=== PATIENT | female | born 1985 | race Caucasian/White ===

== ENCOUNTER 2016-05-13 07:25 | Inpatient (IN) | payer OTHER ==
[2016-05-13] VITALS (37 sets, daily range): BP systolic 98–120; BP diastolic 56–89; PULSE 61–92; RESP 16–18; TEMP 97.8–98.1
[~2016-05-13 07:25] MED LIST: HYDR-3580; PRENTAB72 PO
[2016-05-13] MEDS ORDERED: OXYTOCIN 30 UNITS-500ML PREMIX 500 ML IV SCH (08:30)
[2016-05-13] MEDS ORDERED: LIDOCAINE HCL 1% 50 ML VIAL INFIL PRN (08:30)
[2016-05-13] MEDS ORDERED: MINERAL OIL 10 ML VIAL TOPICAL PRN (08:30)
[2016-05-13] MEDS ORDERED: LACTATED RINGER'S 1000 ML INJ 1,000 ML IV PRN (08:30)
[2016-05-13] MEDS ORDERED: CITRIC ACID-SODIUM CITRATE LIQ 30 ML UDC PO SCH (08:30)
[2016-05-13] MEDS ORDERED: LIDOCAINE HCL 1% 50 ML VIAL I-DERMAL PRN (08:30)
[2016-05-13] MEDS ORDERED: OXYTOCIN 30 UNITS-500ML PREMIX 500 ML IV ONE (08:30)
[2016-05-13] MEDS ORDERED: SODIUM CHLORID 0.9% 500 ML INJ 500 ML IV PRN (08:30)
--- NOTE | 2016-05-13 08:34 | PD.LABORPN ---
Subjective Subjective at 39+ weeks admitted for induction with favorable Pittman Score comfortable with occassional UCs and lots of pressres no leaking or bleeding GFM Objective Objective 3/80/-1 and deviated to the left side AROM clear pelvis clinically adequate and proven strip category 1 Assessment/Plan Assessment and Plan anticipate pitocin and epidural as needed Larissa Tellez MD May 13, 2016 08:34
[2016-05-13] MEDS ORDERED: SODIUM CHLOR 0.9% 1000 ML INJ 1,000 ML IV PRN (08:50)
[2016-05-13 08:57] LABS: AUTOMATED NEUTROPHIL # 6.8 TH/MM3 (1.8-7.7); BASOPHIL % 0.4 % (0.0-2.0); EOSINOPHIL # 0.1 TH/MM3 (0-0.4); HEMATOCRIT 33.2 % (35.0-46.0); HEMO FLAGS DIFF FINAL; LYMPH % 16.5 % (9.0-44.0); LYMPHOCYTE # 1.5 TH/MM3 (1.0-4.8); MEAN CELL VOLUME 79.6 FL (80.0-100.0); MEAN CORPUSCULAR HEMOGLOBIN 27.4 PG (27.0-34.0); MEAN CORPUSCULAR HGB CONC 34.4 % (32.0-36.0); MONO % 6.9 % (0.0-8.0); NEUT % 75.2 % (16.0-70.0); PLATELET COUNT 351 TH/MM3 (150-450); RED BLOOD COUNT 4.18 MIL/MM3 (4.00-5.30); RED CELL DISTRIBUTION WIDTH 14.2 % (11.6-17.2)
[2016-05-13 09:10] LABS: BACTERIA, URINE MOD /hpf; BLOOD, URINE NEG (NEG); GLUCOSE,URINE NEG (NEG); KETONE, URINE NEG (NEG); MUCUS URINE FEW /lpf (OCC); NITRITE,URINE NEG (NEG); SQUAMOUS EPITHELIAL CELL URINE 4 /hpf (0-5); URINE COLOR YELLOW (YELLW/STRAW)
[2016-05-13] MEDS: LACTATED RINGER'S 1000 ML INJ 1,000 ML IV SCH ×2 (09:10→12:09)
[2016-05-13 09:12] LABS: COMMENT (UR) CULTURE INDICATED; CULTURE IF INDICATED CULTURE INDICATED
[2016-05-13] MEDS ORDERED: ePHEDrine/NS 25 MG/5 ML SYR ONE (11:23)
[2016-05-13] MEDS ORDERED: fentaNYL 2MCG-BUPIV 0.125% INJ 100 ML ONE (11:23)
[2016-05-13] MEDS ORDERED: MEASLES, MUMPS, RUBELLA VACCINE 0.5 ML VIAL SQ ONE (16:00)
[2016-05-13] MEDS ORDERED: DIPHTH/TETANUS/ACEL PERTUSSIS (BOOSTER) 0.5 ML VIAL/PFS IM ONE (16:00)
[2016-05-13] MEDS ORDERED: DOCUSATE SODIUM 50 MG/SENNA 8.6 MG TAB PO PRN (16:30)
[2016-05-13] MEDS ORDERED: BENZOCAINE 20% TOPICAL SPRAY 60 ML CAN TOPICAL PRN (16:30)
[2016-05-13] MEDS ORDERED: ONDANSETRON ODT 4 MG TAB PO PRN (16:30)
[2016-05-13] MEDS ORDERED: ALUMINUM/MAGNESIUM/SIMETH 30 ML CUP PO PRN (16:30)
[2016-05-13] MEDS ORDERED: WITCH HAZEL 50%/GLYCERIN 12.5% 40 PAD JAR TOPICAL PRN (16:30)
[2016-05-13] MEDS ORDERED: SODIUM CHLORIDE 0.9% FLUSH 5 ML FLUSH IV PRN (16:30)
[2016-05-13] MEDS ORDERED: ACETAMINOPHEN 325 MG TAB PO PRN (16:30)
[2016-05-13] MEDS ORDERED: ZOLPIDEM TARTRATE 5 MG TAB PO PRN (16:30)
--- NOTE | 2016-05-13 16:30 | PD.OB.DELI ---
Anesthesia: Epidural Episiotomy: None Vaginal Delivery: Normal Presentation: Occiput anterior Nuchal Cord: None Infant: Female One Minute : 9 Five Minute : 9 Weight: 7 Placenta: Spontaneous delivery, Intact Laceration: 1 deg Repair: Chromic interrupted (cord clamp delayed 45 seconds skin to skin) Larissa Tellez MD May 13, 2016 16:16
[2016-05-13] MEDS ORDERED: ePHEDrine/NS 50 MG/5 ML SYR IV PRN (20:00)
[2016-05-13] MEDS ORDERED: fentaNYL 2MCG-BUPIV 0.125% INJ 100 ML EPIDURAL SCH (20:00)
[2016-05-13] MEDS ORDERED: DO NOT ADMINISTER ANTICOAGULANTS XX PRN (20:00)
[2016-05-13] MEDS ORDERED: NO SYSTEM NARCOTICS XX PRN (20:00)
--- NOTE | 2016-05-13 20:04 | HHI.DCPOC ---
Discharge Care Plan Report Symptoms to Your Doctor -Temperate above 100.5 degrees -Redness, of incision or excessive or foul smelling drainage -Unusual pain or calf pain -Increased vaginal bleeding -Painful or difficulty urinating -Feelings of extreme sadness or anxiety after 2 weeks Goals to Promote Your Health * To prevent worsening of your condition and complications * To maintain your health at the optimal level Directions to Meet Your Goals Take your medications as prescribed Follow your dietary instruction Follow activity as directed Ensure plenty of rest for recovery Drink fluids for hydration Keep your appointments as scheduled Take your immunizations and boosters as scheduled If your symptoms worsen call your PCP, if no PCP go to Urgent Care Center or Emergency Room Smoking is Dangerous to Your Health. Avoid second hand smoke Call the 24-hour crisis hotline for domestic abuse at Larissa Tellez MD May 13, 2016 20:04
[2016-05-13] MEDS ORDERED: SODIUM CHLORIDE 0.9% FLUSH 5 ML FLUSH IV SCH (21:00)
[2016-05-14] MEDS: IBUPROFEN 600 MG TAB PO PRN ×4 (03:09→22:42)
--- NOTE | 2016-05-14 09:59 | HHI.OB ---
Subjective Post Day: 1 Remarks PPD#1, doing well, stable Objective Vitals/I&O Vital Signs Date Time Temp Pulse Resp B/P Pulse Ox O2 Delivery O2 Flow Rate FiO2 05/13/16 20:08 82 16 120/75 05/13/16 20:00 98.1 05/13/16 18:15 92 113/63 05/13/16 17:07 18 05/13/16 17:01 72 100/60 05/13/16 16:37 18 05/13/16 16:30 71 116/89 05/13/16 16:21 65 112/61 05/13/16 16:15 63 98/82 05/13/16 15:45 73 108/62 05/13/16 15:16 72 108/58 05/13/16 15:00 67 117/57 05/13/16 14:52 73 111/65 05/13/16 14:15 67 18 108/56 05/13/16 13:40 18 05/13/16 13:40 64 115/69 05/13/16 13:15 18 05/13/16 13:10 61 103/62 05/13/16 13:00 65 107/66 05/13/16 12:50 65 118/66 05/13/16 12:40 71 104/65 05/13/16 12:32 18 05/13/16 12:30 71 107/84 05/13/16 12:30 70 05/13/16 12:25 67 05/13/16 12:20 69 05/13/16 12:20 64 101/67 05/13/16 12:15 67 05/13/16 12:10 74 05/13/16 12:10 67 118/70 05/13/16 12:05 68 05/13/16 12:05 68 115/64 05/13/16 12:00 71 112/58 05/13/16 12:00 71 05/13/16 11:58 97.8 05/13/16 11:55 72 116/58 05/13/16 11:50 71 05/13/16 11:45 83 05/13/16 10:15 98.1 16 05/13/16 10:14 114/82 Objective Remarks GENERAL: Well-nourished, well-developed patient. CARDIOVASCULAR: Regular rate and rhythm without murmurs, gallops, or rubs. RESPIRATORY: Breath sounds equal bilaterally. No accessory muscle use. ABDOMEN/GI: Abdomen soft, non-tender. Fundus: Firm, non-tender at umbilicus. GENITOURINARY: Light to moderate bleeding. EXTREMITIES: No cyanosis or edema, non-tender, without signs of DVT. Medications and IVs Current Medications Medications (Trade) Dose Ordered Sig/Rita Route Start Time Stop Time Status Last Admin Lactated Ringer's 1,000 ml @ 125 mls/hr Q8H IV 05/13/16 08:30 05/13/16 12:09 Lactated Ringer's 1,000 ml @ 3,000 mls/hr Q20M PRN IV 05/13/16 08:30 (NS 1000 ml Inj) 1,000 ml @ 100 mls/hr Q10H PRN IV 05/13/16 08:50 (fentaNYL INJ) 50 mcg Q1H PRN IV PUSH 05/13/16 08:30 (fentaNYL INJ) 100 mcg Q1H PRN IV PUSH 05/13/16 08:30 Mineral Oil 10 ml 10 ml UNSCH PRN TOPICAL 05/13/16 08:30 (Pitocin 30 Units-NS 500 ml Premix) 500 ml @ 0 mls/hr TITRATE IV 05/13/16 08:30 05/13/16 10:17 (NS Flush) 2 ml BID IV 05/13/16 21:00 (NS Flush) 2 ml UNSCH PRN IV 05/13/16 16:30 (Tylenol) 650 mg Q4H PRN PO 05/13/16 16:30 (Motrin) 600 mg Q6H PRN PO 05/13/16 16:30 05/14/16 03:09 (Americaine 20% Top Spr) 1 spray Q4H PRN TOPICAL 05/13/16 16:30 (Tucks Pads) 1 applic QID PRN TOPICAL 05/13/16 16:30 (Анна-Colace) 2 tab Q12H PRN PO 05/13/16 16:30 (Ambien) 5 mg HS PRN PO 05/13/16 16:30 (Mag-Al Plus Susp Liq) 15 ml Q8H PRN PO 05/13/16 16:30 (Zofran Odt) 4 mg Q6H PRN PO 05/13/16 16:30 Miscellaneous Information No systemic narcotics to be given except... UNSCH PRN XX 05/13/16 20:00 05/14/16 19:59 Miscellaneous Information DO NOT ADMINISTER ANY ANTICOAGUL... UNSCH PRN XX 05/13/16 20:00 05/14/16 19:59 (fentaNYL 2MCG-BUPIV 0.125% INJ) 100 ml @ 0 mls/hr TITRATE EPIDURAL 05/13/16 20:00 (ePHEDrine/NS 50 MG/5 ML SYR) 10 mg UNSCH PRN IV 05/13/16 20:00 05/14/16 19:59 Assessment/Plan Assessment and Plan PPD#1, Stable Discharge Planning does not meet criteria Attending Attestation Seen by Trung Hubbard MD May 14, 2016 09:59
[2016-05-15] MEDS: IBUPROFEN 600 MG TAB PO PRN ×2 (04:27→12:55)
--- NOTE | 2016-05-15 10:47 | HHI.OB ---
Subjective Post Day: 2 Remarks doing well, baby needs repeat labs Objective Objective Remarks GENERAL: Well-nourished, well-developed patient. CARDIOVASCULAR: Regular rate and rhythm without murmurs, gallops, or rubs. RESPIRATORY: Breath sounds equal bilaterally. No accessory muscle use. ABDOMEN/GI: Abdomen soft, non-tender. Fundus: Firm, non-tender at umbilicus. GENITOURINARY: Light to moderate bleeding. EXTREMITIES: No cyanosis or edema, non-tender, without signs of DVT. Medications and IVs Current Medications Medications (Trade) Dose Ordered Sig/Rita Route Start Time Stop Time Status Last Admin Lactated Ringer's 1,000 ml @ 125 mls/hr Q8H IV 05/13/16 08:30 05/13/16 12:09 Lactated Ringer's 1,000 ml @ 3,000 mls/hr Q20M PRN IV 05/13/16 08:30 (NS 1000 ml Inj) 1,000 ml @ 100 mls/hr Q10H PRN IV 05/13/16 08:50 (fentaNYL INJ) 50 mcg Q1H PRN IV PUSH 05/13/16 08:30 (fentaNYL INJ) 100 mcg Q1H PRN IV PUSH 05/13/16 08:30 Mineral Oil 10 ml 10 ml UNSCH PRN TOPICAL 05/13/16 08:30 (Pitocin 30 Units-NS 500 ml Premix) 500 ml @ 0 mls/hr TITRATE IV 05/13/16 08:30 05/13/16 10:17 (NS Flush) 2 ml BID IV 05/13/16 21:00 (NS Flush) 2 ml UNSCH PRN IV 05/13/16 16:30 (Tylenol) 650 mg Q4H PRN PO 05/13/16 16:30 (Motrin) 600 mg Q6H PRN PO 05/13/16 16:30 05/15/16 04:27 (Americaine 20% Top Spr) 1 spray Q4H PRN TOPICAL 05/13/16 16:30 (Tucks Pads) 1 applic QID PRN TOPICAL 05/13/16 16:30 (Анна-Colace) 2 tab Q12H PRN PO 05/13/16 16:30 (Ambien) 5 mg HS PRN PO 05/13/16 16:30 (Mag-Al Plus Susp Liq) 15 ml Q8H PRN PO 05/13/16 16:30 Ondansetron HCl 4 mg 4 mg Q6H PRN PO 05/13/16 16:30 (fentaNYL 2MCG-BUPIV 0.125% INJ) 100 ml @ 0 mls/hr TITRATE EPIDURAL 05/13/16 20:00 Assessment/Plan Assessment and Plan PPD#2, Stable, cont routine care Discharge Planning today Abiola Caballero MD May 15, 2016 10:47
== END 2016-05-15 13:08 | disposition home or self-care (01) | DRG 775 ==
LOC: H2EA 07:25 → H1EA 19:14
PROVIDERS: ADMIT Obstetrics & Gynecology; ATTEND Obstetrics & Gynecology
PROC: 10E0XZZ Delivery of Products of Conception, External Approach (ICD-10-PCS; principal; 2016-05-13)
PROC: 0HQ9XZZ Repair Perineum Skin, External Approach (ICD-10-PCS; 2016-05-13)
PROC: 00HU33Z Insertion of Infusion Device into Spinal Canal, Percutaneous Approach (ICD-10-PCS; 2016-05-13)
PROC: 3E0R3CZ (ICD-10-PCS; 2016-05-13)
PROC: 10907ZC Drainage of Amniotic Fluid, Therapeutic from Products of Conception, Via Natural or Artificial Opening (ICD-10-PCS; 2016-05-13)
DX: O70.0 First degree perineal laceration during delivery (principal); Z37.0 Single live birth; Z3A.39 39 weeks gestation of pregnancy
CPT/HCPCS: 59025; 81001; 85025; 87086; J2590; J7120